=== PATIENT | female | born 1990 | race Caucasian/White ===

== ENCOUNTER 2024-03-02 09:43 | Outpatient (CLI) | payer BC, MEDICAID, SELFPAY ==
--- NOTE | ~2024-03-02 | US_ITS ---
EXAMINATION: US renal BI DATE: 03/02/2024 10:04 INDICATION: Kidney stone. TECHNIQUE: Multiple ultrasound grayscale images of the kidneys were obtained. COMPARISON: CT abdomen and pelvis 09/09/2013 FINDINGS: The right kidney measures 9.3 x 4.4 x 4.4 cm. The left kidney measures 9.2 x 5.1 x 4.4 cm. The kidney s demonstrate normal parenchymal echogenicity. There is no hydronephrosis. The bladder is normal. IMPRESSION: 1. Normal kidneys. No hydronephrosis. Reviewed, dictated and finalized at location A.
== END 2024-03-02 09:44 ==
PROVIDERS: PCP Physician Assistant; Visit Provider Physician Assistant
DX: N20.0 Calculus of kidney (principal)
CPT/HCPCS: 76775